=== PATIENT | male | born 1990 | race Caucasian/White ===

== ENCOUNTER 2023-09-22 09:53 | Emergency (ER) | payer BC, SELFPAY ==
[2023-09-22 09:58] VITALS: BP 146/77; PULSE 82; RESP 16; TEMP 36.9; O2SAT 99
--- NOTE | 2023-09-22 10:17 | ED.HA ---
HPI - Headache General Chief Complaint: Headache Stated Complaint: Headache Time Seen by Provider: 09/22/23 10:17 Source: patient Mode of arrival: ambulatory Limitations: no limitations History of Present Illness HPI Narrative: 33-year-old male presents with complaint of sinus congestion, nasal congestion, postnasal drainage, coughing for the past 2 weeks. Taking hlvo-[id number]-gapueso Mucinex, Sudafed with no relief of symptoms. Does not take daily antihistamine. Afebrile. Reports sinus headaches for the past 3 days. All systems reviewed and negative except as noted above. Related Data Allergies Allergy/AdvReac Type Severity Reaction Status Date / Time Penicillins Allergy Unknown Verified 08/21/15 13:59 Review of Systems Review of Systems: CONSTITUTIONAL: Denies fever, chills, or sweats. EYES: Denies visual changes, redness, or discharge. ENT: Reports rhinorrhea, congestion, sinus congestion, sinus headaches. Denies sore throat, or otalgia. CARDIOVASCULAR: Denies chest pain, palpitations, or edema. RESPIRATORY: Reports cough. Denies dyspnea. GASTROINTESTINAL: Denies abdominal pain, nausea, vomiting, or diarrhea. GENITOURINARY: Denies dysuria or hematuria. SKIN: Denies rash or itching. MUSCULOSKELETAL: Denies back pain, joint pain, or myalgia. NEUROLOGIC: Reports headache. Denies numbness, or weakness. PSYCHIATRIC: Denies anxiety or depression. All other systems reviewed are negative, except as documented in HPI. Course Course Level of Care: Express Care Visit Vital Signs Vital signs: Vital Signs Temperature 36.9 C 09/22/23 09:58 Pulse Rate 82 09/22/23 09:58 Respiratory Rate 16 09/22/23 09:58 Blood Pressure 146/77 H 09/22/23 09:58 Pulse Oximetry 99 09/22/23 09:58 Oxygen Delivery Room Air 09/22/23 09:58 Temperature 36.9 C 09/22/23 09:58 Pulse Rate 82 09/22/23 09:58 Respiratory Rate 16 09/22/23 09:58 Blood Pressure 146/77 H 09/22/23 09:58 Pulse Oximetry 99 09/22/23 09:58 Oxygen Delivery Room Air 09/22/23 09:58 Reviewed MDM - Headache MDM Narrative Medical decision making narrative: Will treat patient with antibiotic for bacterial sinusitis due to duration symptoms and exam findings. Patient agrees with plan of care Patient is aware of diagnosis, understands and agrees to treatment plan. Anticipatory guidance given. Patient agrees to follow-up as directed and is aware of reasons to seek care at the emergency department. Portions of this record may have been created with voice recognition software Differential Diagnosis Differential diagnosis: Likely sinusitis Discharge Plan Discharge Clinical Impression: Acute bacterial sinusitis Patient Disposition: Home, Self-Care Condition: Stable Instructions: Antibiotic Form, Sinusitis (ED) Additional Instructions: Take medications as prescribed. Continue taking [id number]-aqydyuo Mucinex as directed on packaging. Take Zyrtec daily. Drink at least 64 oz of water a day. May continue to take ibuprofen or Tylenol as needed for pain. If symptoms not improving follow-up with your primary care physician. Prescriptions: New doxycycline hyclate 100 mg capsule 100 mg PO BID 7 Days Qty: 14 0RF benzonatate 200 mg capsule 200 mg PO TID PRN (Reason: cough) Qty: 20 0RF methylprednisolone [Medrol (Juan C)] 4 mg tablets,dose pack See Rx Instructions PO .COMPLEX Qty: 21 0RF Rx Instructions: orally per package directions fluticasone propionate [Flonase Allergy Relief] 50 mcg/actuation spray,suspension 1 spray intranasal BID Qty: 16 0RF Rx Instructions: administer into each nostril Follow-up/Referrals: PHYSICIAN,[facility] ROOM OPERATOR [Primary Care Provider] - Time of Disposition: 10:26
== END 2023-09-22 10:30 | disposition home or self-care (01) ==
PROVIDERS: Emergency Provider Nurse Practitioner Family
DX: J01.90 Acute sinusitis, unspecified (principal)
CPT/HCPCS: 99213; G0463